=== PATIENT | female | born 1995 | race Caucasian/White ===

== ENCOUNTER 2018-02-16 19:41 | Emergency (ER) | payer OTHER ==
[~2018-02-16] VITALS: Wt 94.2 kg
[2018-02-16 19:44] VITALS: BP 128/58; PULSE 83; RESP 18
[2018-02-16] MEDS ORDERED: POLY10DR19 LEFT EYE (22:13)
--- NOTE | 2018-02-16 22:21 | ERD ---
ER Documentation Chief Complaint Chief Complaint LEFT EYE PAIN, DISCHARGE X'S 3 DAYS HPI This is a 22-year-old female presents ED with complaints of left eye injection and discharge times 3 days. Patient admits to some mild irritation to left eye. Denies trauma to globe. Denies severe eye pain, blurry vision, changes in vision, pain with eye movement, fever, chills, headache, and all other symptoms. Denies recent sick contact or recent travel. Does not wear contact lenses ROS All systems reviewed and are negative except as per history of present illness. Medications Home Meds Active Scripts Polymyxin B Sulfate-TMP* (Polymyxin B-TMP Eye Drops*) 10 Ml Drops, 1 DROP LEFT EYE QID for 7 Days, EA Prov:GEN RICH PA-C 02/16/18 Allergies Allergies: Coded Allergies: No Known Allergy (Unverified , 02/16/18) FmHx Family History: No diabetes Physical Exam Vitals Vital Signs Date Temp Pulse Resp B/P (MAP) Pulse Ox O2 O2 Flow FiO2 Time Delivery Rate 02/16/18 98.7 83 18 128/58 97 19:44 (81) Physical Exam Const: No acute distress Head: Atraumatic Eyes: Normal Conjunctiva ENT: Normal External Ears, Nose and Mouth. Left eye injected with scant discharge, no foreign body identified, no pain with extraocular eye movements, PERRLA, EOMs intact bilaterally x6, Neck: Full range of motion. No meningismus. Resp: Clear to auscultation bilaterally Cardio: Regular rate and rhythm, no murmurs Neur: Awake and alert Psych: Normal Mood and Affect Procedures/MDM ER COURSE: The patient was stable throughout ED course. I kept the patient and/or family informed of laboratory and diagnostic imaging results throughout the emergency room course. The patient was promptly evaluated and a treatment plan was devised based on H&P and other data. This plan was discussed with the patient who agreed and had no further questions or concerns prior to discharge. MEDICAL DECISION MAKIN-year-old female presents ED with bacterial conjunctivitis of left eye. Suspicion for orbital cellulitis is low. Patient does not have any eye pain or painful extraocular movements and there is no surrounding erythema. Patient is afebrile and extremely well-appearing. Patient has denied any trauma to the eye and any vision loss or vision changes. No evidence of globe perforation or other ophthalmic emergencies. Pt will be sent home with abx, pt is to follow-up with her primary care doctor within 1-2 days. return to ER sooner if symptoms worsen. My medical decision making shared with the patient she understands and agrees with plan. DISPOSITION PLAN: We discussed follow up with the patient's primary care doctor within 24 to 48 hours. Patient counseled regarding my diagnostic impression and care plan. Prior to discharge all questions answered. Pt agrees with treatment plan and understands strict return precautions. Precautionary instructions provided including instructions to return to the ER if not improving or for any worsening or changing symptoms or concerns. ExitCare instructions provided. Prior to discharge, patients vital signs have been reviewed SPECIALIST FOLLOW UP RECOMMENDED: None Patient has been advised to follow up with primary care in 1-2 days. Disclaimer: Inadvertent spelling and grammatical errors are likely due to EHR/dictation software use and do not reflect on the overall quality of patient care. Also, please note that the electronic time recorded on this note does not necessarily reflect the actual time of the patient encounter. Blood Pressure Assessment: Patient's blood pressure was elevated (>120/80) but appears stable without evidence of hypertension emergency or urgency. The patient was counseled about the risks of hypertension and urged to pursue outpatient monitoring and therapy within a week with their primary care physician. Departure Diagnosis: Primary Impression: Left conjunctivitis Conjunctivitis type: acute Acute conjunctivitis type: bacterial Qualified Codes: H10.32 - Unspecified acute conjunctivitis, left eye Condition: Stable Patient Instructions: Conjunctivitis, Bacterial Additional Instructions: Patient advised to return to the ED immediately for new or worsening symptoms. Patient advised to follow up with primary care provider in the next 24-48 hours. Patient verbalized understanding and agrees with treatment plan and course of action. If patient has no primary care they may follow up with one of the community clinics listed on the following page or one of the options listed below [facility] [address] [place] [id number] or [facility] [address] [place] [address] or [facility] [address] [place] [address] GEN RICH PA-C Feb 16, 2018 22:21
== END 2018-02-16 23:24 | disposition home or self-care (01) ==
LOC: FTE 19:41
DX: H10.32 Unspecified acute conjunctivitis, left eye (principal)
CPT/HCPCS: 99283

== ENCOUNTER 2018-10-08 11:03 | Emergency (ER) | payer OTHER ==
[~2018-10-08] VITALS: Ht 162.6 cm; Wt 82.6 kg
[~2018-10-08 11:03] MED LIST: FLUC150T PO; POLY10DR19 LEFT EYE
[2018-10-08 11:16] VITALS: BP 113/67; PULSE 80; RESP 16; Ht 162.6 cm; Wt 82.6 kg
== END 2018-10-08 12:20 | disposition home or self-care (01) ==
LOC: FTE 11:03
DX: R10.2 Pelvic and perineal pain (principal)
CPT/HCPCS: 99283